=== PATIENT | male | born 1960 | race Caucasian/White ===

== ENCOUNTER → 2021-09-06 13:52 | Outpatient (CLI) | payer BC, SELFPAY ==
--- NOTE | 2021-09-06 13:59 | VDLE_ITS ---
Reason For Study: swelling RIGHT LEFT GSV is normal. GSV is normal. CFV is compressible, spontaneous, phasic, CFV is compressible, spontaneous, phasic, competent and demonstrates normal competent, and demonstrates normal augmentation. augmentation. FV is compressible, spontaneous, phasic, Prox FV is compressible. Mid FV, Dist FV, POP competent and demonstrates normal V, T/P Trunk, PTV, Peroneal V, Gastroc V, and augmentation. Soleus V are dilated and noncompressible. POP V is compressible, spontaneous, phasic, competent and demonstrates normal augmentation. T/P Trunk is compressible. PTV is compressible. RT PerV is compressible. Procedure This is a venous duplex using B-mode, color flow and spectral Doppler. Exam performed in department. The exam was diagnostic. A preliminary report was called and/or faxed to Dr. Jeronimo. VL/Venous Duplex US - Deepak Extrem Interpretation Summary There is no evidence of right lower extremity deep vein thrombosis. Acute deep venous thrombosis left femoral mid to distal and popliteal and tibioperoneal trunk and posterior tibial and peroneal and gastrocnemius and soleus veins Patent and compressible left great saphenous vein Ordering Physician: Isaura Jeronimo Performed By: Trevin Burgos RVT
== END ==
PROVIDERS: Referring Provider Internal Medicine Hematology & Oncology; Visit Provider Internal Medicine Hematology & Oncology
DX: M79.89 Other specified soft tissue disorders (principal); C33 Malignant neoplasm of trachea; C34.80 Malignant neoplasm of overlapping sites of unspecified bronchus and lung
CPT/HCPCS: 93970